=== PATIENT | female | born 1995 | race Caucasian/White ===

== ENCOUNTER 2018-06-02 10:18 | Emergency (ER) | payer OTHER, SELFPAY ==
[2018-06-02 10:25] VITALS: BP 131/73; PULSE 97; RESP 16; TEMP 36.7; O2SAT 99
--- NOTE | 2018-06-02 11:39 | DI.US.S_ITS ---
PROCEDURE: US OB >= 14 WEEKS FETUS INDICATIONS: RUPTURE OF MEMBRANES, 18 WEEKS OUTSIDE/PRIOR DATING DATA: Last menstrual period (LMP): 01/23/18. LMP-based estimated date of delivery (ALICIA): 10/30/18. First dating scan (date and location): This study, 06/02/18. Estimated date of delivery (ALICIA) from first dating scan: 11/06/18, plus or -10 days. TECHNIQUE: Real-time scanning was performed of the fetus, with image documentation and biometric measurements. Endovaginal scanning: Not needed for this study. COMPARISON: None. FINDINGS: General: A single living intrauterine gestation is present. Presentation: Vertex. Placenta: Placental position is posterior fundal, without previa. Amniotic fluid index: 11.5 cm, normal range is 5-24 cm. heart rate: 152 beats per minute. Maternal cervical canal: 3.1 cm long. Normal lower limit is 2.5 cm. biometrics: Biparietal diameter: 3.9 cm, 17 weeks 5 days Head circumference: 14.2 cm, 17 weeks 3 days Abdominal circumference: 11.7 cm, 17 weeks 3 days Femur length: 2.5 cm, 17 weeks 3 days Estimated gestational age from initial scan: not applicable. Composite gestational age from present scan: 17 weeks 4 days Estimated weight and percentile: 197 g, 5th percentile Measurement variability for biometric dating: +/- 7 days from 14 weeks to 15 weeks 6 days gestation, +/- 10 days from 16 weeks to 21 weeks 6 days gestation, +/- 2 weeks from 22 weeks to 27 weeks 6 days gestation, +/- 3 weeks for 28 weeks gestation or later. weight reference: 4500 g or EFW >90/95% is considered macrosomia or large for gestational age. EFW <10% is small for gestational age. EFW 5% or less is considered intra-uterine growth restriction. Anatomic survey: Neuro: Ventricles are non-dilated at less than 10 mm. Cisterna magna is normal at 3-11 mm. Cerebellum is normal in size and morphology. Nuchal skin fold: Normal at less than 6 mm between 14-21 weeks gestational age. Face: Nose and lips, facial profile are normal. Spine: No evidence for spina bifida. Heart: 4-chambered heart is present, with normal ventricular outflow tracts. Diaphragm: Diaphragm is intact. Stomach: Left-sided stomach is present. Kidneys: No hydronephrosis. Normal is less than 5 mm in 2nd trimester, less than 7 mm in 3rd trimester. Cord: 3-vessel cord has orthotopic insertion. Bladder: Normal in size. Extremities: All 4 extremities identified. IMPRESSION: Appropriate interval growth from LMP. Delivery date is projected in the center on 11/06/18. Current amniotic fluid volume is normal. Current weight is at the lower 5th percentile. Dictated by: Tian Grossman M.D. on 06/02/2018 at 12:36 Approved by: Tian Grossman M.D. on 06/02/2018 at 12:39
[2018-06-02 11:54] LABS: Add Manual Diff / Slide Review NO; Basophils Percent Auto 0.5 % (0-2); Eosinophils Percent Auto 1.4 % (2-4); Hematocrit 32.8 % (36-46); Lymphocytes Percent Auto 17.7 % (25-40); Mean Corpuscular HGB Conc 33.5 % (30-36); Mean Corpuscular Hemoglobin 26.4 PG (26-34); Mean Corpuscular Volume 78.9 fL (80-100); Monocytes Percent Auto 5.3 % (3-14); Neutrophils Absolute Auto 8600 /uL (3000-5900); Neutrophils Percent Auto 75.1 % (50-75); Platelet Count 251 X10^3/uL (150-400); Red Blood Cell Count 4.16 X10^6/uL (4.0-5.2); Red Cell Distribution Width 15.2 % (11.6-14.8); White Blood Cell Count 11.4 X10^3/uL (4.5-11.0)
[2018-06-02 12:06] LABS: Alanine Aminotransferase 25 IU/L (9-52); Albumin 3.8 g/dL (3.5-5.0); Albumin Globulin Ratio 1.3 (1.0-2.8); Alkaline Phosphatase 44 U/L (38-126); Aspartate Aminotransferase 21 IU/L (14-36); Blood Urea Nitrogen 5 mg/dL (7-17); Calcium 8.6 mg/dL (8.4-10.2); Carbon Dioxide 21 mmol/L (22-32); Chloride 107 mmol/L (98-107); Estimated Glomerular Filt Rate > 60.0 mL/min (>60); Glucose 88 mg/dL (70-100); HEMOLYSIS < 15 (0-50); Potassium 3.7 mmol/L (3.4-5.1); Sodium 140 mmol/L (137-145); Total Protein 6.8 g/dL (6.3-8.2)
[2018-06-02 12:07] LABS: Bilirubin Total < 0.1 mg/dL (0.2-1.3)
[2018-06-02] MEDS: SODIUM CHLORIDE 0.9% 1,000 ML 150 ML IV (12:10)
[2018-06-02 12:23] LABS: HCG Quantitative /Beta subunit 12876 mIU/mL
--- NOTE | 2018-06-02 13:05 | ED_ITS ---
HPI - General Chief complaint: OB/Uterine Contractions Stated complaint: LEONARDO BULL, 18 WEEKS Time Seen by Provider: 06/02/18 11:12 Source: patient and old records reviewed Limitations: no limitations History of Present Illness HPI Narrative: Patient is a 22-year-old female who is AG 4 P 0 83 presenting with back pain. She was actually seen and evaluated at 2 hospitals earlier this week 1 was [place] yesterday where she fell and had rupture of membranes. According to records she was seen at the [facility] and labor and delivery clinic. At that particular time she had a speculum exam which was negative for pooling as well as nitrazine. She was being sent home and she did developed more leakage the nitrazine test at that time was positive. She was instructed to call back if she was having contractions or bleeding. She then decided to come visit her mother at which point she was having cramping and she went to [facility] last night. She had an ultrasound last evening which showed normal amniotic fluid as well as activity. She was discharged home with watchful waiting. Today she started having back pain she has had no further leakage of fluid or blood. Patient : Yes Related Data Home Medications Medication Instructions Recorded Confirmed PNV,calcium 59-tlvx-xqgsd acid 1 tab PO DAILY 06/02/18 06/02/18 [ Plus (calcium carb)] cholecalciferol (vitamin D3) 1,000 units PO DAILY 06/02/18 06/02/18 ondansetron 4 mg PO PRN PRN 06/02/18 06/02/18 Allergies Allergy/AdvReac Type Severity Reaction Status Date / Time No Known Drug Allergies Allergy Verified 06/02/18 10:25 Review of Systems Review of Systems All systems reviewed & are unremarkable except as noted in HPI and below Constitutional Denies chills, Denies fever(s), Denies lethargy and Denies weakness Cardiovascular Denies chest pain, Denies syncope and Denies dyspnea Respiratory Denies cough and Denies dyspnea Gastrointestinal Gastrointestinal: Denies abdominal pain, Denies diarrhea and Denies nausea Genitourinary Reports as per HPI Musculoskeletal Reports back pain Integumentary/Breasts Denies pruritus, Denies erythema, Denies rash and Denies wounds Neurologic Denies syncope and Denies weakness PMFSH - Past Medical History 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 HEENT: Head atraumatic,EOMI, pupils reactive, face symmetric CARDIOVASCULAR: Regular rate and rhythm without murmurs, rubs or gallops. RESPIRATORY: Breath sounds equal bilaterally, no wheezes rales or rhonchi. ABDOMEN: Soft, nontender. Normoactive bowel sounds all 4 quadrants. No guarding or rebound. : No CVA tenderness PELVIC: External genitalia is normal, sterile speculum exam no pooling some clear discharge, EXTREMITIES: Normal range of motion, no clubbing or edema. Neurovascularly intact NEUROLOGICAL: Alert and oriented x4.Normal gait and speech. Cranial nerves II through XII grossly intact. SKIN: Warm, dry, no laceration, no petechiae, no rashes or lesions. Course Orders Ordered: Discontinued Medications Sodium Chloride (Normal Saline 0.9%) 1,000 mls @ 150 mls/hr IV CONT DARLIN Last Infusion: 06/02/18 14:07 Dose: 0 mls/hr Admin: 06/02/18 12:10 Dose: 150 mls/hr Vital Signs - 8 hr 06/02/18 10:25 Temperature 98.0 F Pulse Rate 97 H Respiratory Rate 16 Blood Pressure 131/73 Pulse Oximetry 99 MDM - OB/Uterine Contractions Lab Data Attestation: I reviewed the patient's lab results. Result diagrams: 06/02/18 11:44 06/02/18 11:44 Lab Results 06/02/18 06/02/18 06/02/18 Range/Units 11:44 11:44 11:44 WBC 11.4 H (4.5-11.0) X10^3/uL RBC 4.16 (4.0-5.2) X10^6/uL Hgb 11.0 L (12.0-16.0) g/dL Hct 32.8 L (36-46) % MCV 78.9 L (80-100) fL MCH 26.4 (26-34) PG MCHC 33.5 (30-36) % RDW 15.2 H (11.6-14.8) % Plt Count 251 (150-400) X10^3/uL Neut % (Auto) 75.1 H (50-75) % Lymph % (Auto) 17.7 L (25-40) % [place] % (Auto) 5.3 (3-14) % Eos % (Auto) 1.4 L (2-4) % Baso % (Auto) 0.5 (0-2) % Neut # (Auto) 8600 H (8145-4833) /uL Sodium 140 (137-145) mmol/L Potassium 3.7 (3.4-5.1) mmol/L Chloride 107 (98-107) mmol/L Carbon Dioxide 21 L (22-32) mmol/L BUN 5 L (7-17) mg/dL Creatinine 0.50 L (0.52-1.04) mg/dL Estimated GFR > 60.0 (>60) mL/min BUN/Creatinine Ratio 10.0 (6-22) Glucose 88 (70-100) mg/dL Calcium 8.6 (8.4-10.2) mg/dL Total Bilirubin < 0.1 L (0.2-1.3) mg/dL AST 21 (14-36) IU/L ALT 25 (9-52) IU/L Alkaline Phosphatase 44 (38-126) U/L Total Protein 6.8 (6.3-8.2) g/dL Albumin 3.8 (3.5-5.0) g/dL Globulin 3.0 (1.7-4.1) g/dL Albumin/Globulin Ratio 1.3 (1.0-2.8) HCG, Quant 19901 mIU/mL Blood Type B Positive Imaging Data OB US: Radiologist's impression: Signed Patient: [facility]#: [id number] : 1995Acct:[id number] Age/Sex: 22 / FDate of Service: 06/02/18 Loc: ED Accession Number: [id number] Procedure: US OB >= 14 weeks Fetus Ordering Provider: Botnick,Koki D.O. PROCEDURE: US OB >= 14 WEEKS FETUS INDICATIONS: RUPTURE OF MEMBRANES, 18 WEEKS OUTSIDE/PRIOR DATING DATA: Last menstrual period (LMP): 01/23/18. LMP-based estimated date of delivery (ALICIA): 10/30/18. First dating scan (date and location): This study, 06/02/18. Estimated date of delivery (ALICIA) from first dating scan: 11/06/18, plus or -10 days. TECHNIQUE: Real-time scanning was performed of the fetus, with image documentation and biometric measurements. Endovaginal scanning: Not needed for this study. COMPARISON: None. FINDINGS: General: A single living intrauterine gestation is present. Presentation: Vertex. Placenta: Placental position is posterior fundal, without previa. Amniotic fluid index: 11.5 cm, normal range is 5-24 cm. heart rate: 152 beats per minute. Maternal cervical canal: 3.1 cm long. Normal lower limit is 2.5 cm. biometrics: Biparietal diameter: 3.9 cm, 17 weeks 5 days Head circumference: 14.2 cm, 17 weeks 3 days Abdominal circumference: 11.7 cm, 17 weeks 3 days Femur length: 2.5 cm, 17 weeks 3 days Estimated gestational age from initial scan: not applicable. Composite gestational age from present scan: 17 weeks 4 days Estimated weight and percentile: 197 g, 5th percentile Measurement variability for biometric dating: +/- 7 days from 14 weeks to 15 weeks 6 days gestation, +/- 10 days from 16 weeks to 21 weeks 6 days gestation, +/- 2 weeks from 22 weeks to 27 weeks 6 days gestation, +/- 3 weeks for 28 weeks gestation or later. weight reference: 4500 g or EFW >90/95% is considered macrosomia or large for gestational age. EFW <10% is small for gestational age. EFW 5% or less is considered intra-uterine growth restriction. Anatomic survey: Neuro: Ventricles are non-dilated at less than 10 mm. Cisterna magna is normal at 3-11 mm. Cerebellum is normal in size and morphology. Nuchal skin fold: Normal at less than 6 mm between 14-21 weeks gestational age. Face: Nose and lips, facial profile are normal. Spine: No evidence for spina bifida. Heart: 4-chambered heart is present, with normal ventricular outflow tracts. Diaphragm: Diaphragm is intact. Stomach: Left-sided stomach is present. Kidneys: No hydronephrosis. Normal is less than 5 mm in 2nd trimester, less than 7 mm in 3rd trimester. Cord: 3-vessel cord has orthotopic insertion. Bladder: Normal in size. Extremities: All 4 extremities identified. IMPRESSION: Appropriate interval growth from LMP. Delivery date is projected in the center on 11/06/18. Current amniotic fluid volume is normal. Current weight is at the lower 5th percentile. Dictated by: Tian Grossman M.D. on 06/02/2018 at 12:36 Approved by: Tian Grossman M.D. on 06/02/2018 at 12:39 MDM Narrative Medical decision making narrative: 1:30 p.m. I spoke with Dr. Baker in regards to probable spontaneous rupture of membranes. He recommends that patient stay in 1 place and docked going to multiple hospitals. At this time there are no signs of infection no active discharge of baby, may be discharged home with monitoring. I discussed warning signs with patient including infection and bleeding and when to return to the ER. I also strongly recommended that she stay in 1 place , she may need a D&C. She understands she appears nontoxic all questions have been addressed. She will be staying in [place] with her mother. Discharge Plan Departure Patient Disposition: Home Clinical Impression: Threatened Discharge Date/Time: 06/02/18 14:13 Interventions: ED Discharge Assessment Last Done: 06/02/18 14:12 Instructions: Threatened Activity Restrictions/Additional Instructions: *You have been diagnosed with threatened *What to do: It is possible that your membranes have 3 sealed. However this is a very low possibility. His it is also possible that you may developed infection and have a miscarriage. At this time watchful waiting. It is recommended that you go to the same hospital each time in order to have continuity of care until this issue has resolved. *Continue to take medications as directed *Follow up with your primary care provider in 2-3 days *Return to ER if you should have fever, leakage of fluid, vaginal bleeding, increased pain or any new, worsening or concerning symptoms Prescriptions: No Action ondansetron 4 mg tablet,disintegrating 4 mg PO PRN PRN (Reason: Nausea) RF: 0 cholecalciferol (vitamin D3) 1,000 unit tablet 1,000 units PO DAILY RF: 0 PNV,calcium 21-oemx-gijdv acid [ Plus (calcium carb)] 27 mg iron- 1 mg tablet 1 tab PO DAILY RF: 0
== END 2018-06-02 14:13 | disposition home or self-care (01) ==
PROVIDERS: Emergency Provider Emergency Medicine
DX: O20.0 Threatened abortion (principal); Z3A.18 18 weeks gestation of pregnancy
CPT/HCPCS: 36591; 76811; 80053; 84702; 85025; 86900; 86901; 96360; 96361; 99283; 99284

== ENCOUNTER 2018-06-03 22:02 | Emergency (ER) | payer OTHER, SELFPAY ==
[2018-06-03 22:13] VITALS: BP 139/63; PULSE 109; RESP 15; TEMP 37.1; O2SAT 100; BMI 39.9
--- NOTE | 2018-06-03 22:30 | ED.PREGNANCY ---
HPI - General Chief complaint: OB/Uterine Contractions Stated complaint: 18 WKS LEONARDO BULL HAS FEVER Time Seen by Provider: 06/03/18 22:16 Source: patient and old records reviewed Mode of arrival: ambulatory Limitations: no limitations History of Present Illness HPI Narrative: This is a 22-year-old female comes to the emergency department with concern for fever and premature rupture of membranes. Patient is 18 weeks and 4 days. She states she was seen at 3 different locations including here yesterday, she was diagnosed with rupture of membranes, with positive nitrazine at two prior facilities, she had ultrasound yesterday with normal fluid level. She was told because she is so early there was not much to do at this point patient was told to return if she had fevers or chills. She states she had a 101.3 F earlier today and chills. She did have some nausea and vomiting around 3:00 a.m. this afternoon she felt a little short of breath earlier in the day, no chest pain. She has not been having any diarrhea or constipation. She has not had any urinary symptoms. She has continued to have a small amount of fluid leaking. She has also had a small amount of bleeding she states her underwear has been little bit of a brownish color and she states there is an odor. She does not know if that was from blood or infection. Initially she has had 3 prior pregnancies which all ended in miscarriage. She has never had a to term. She has continued to have sensation of contractions. Related Data Home Medications Medication Instructions Recorded Confirmed PNV,calcium 75-cyrm-nviss acid 1 tab PO DAILY 06/02/18 06/03/18 [ Plus (calcium carb)] cholecalciferol (vitamin D3) 1,000 units PO DAILY 06/02/18 06/03/18 ondansetron 4 mg PO PRN PRN 06/02/18 06/03/18 Previous Rx's Medication Instructions Recorded erythromycin 250 mg PO Q6H #40 tab 06/03/18 Allergies Allergy/AdvReac Type Severity Reaction Status Date / Time No Known Drug Allergies Allergy Verified 06/03/18 22:13 Review of Systems Review of Systems All systems reviewed & are unremarkable except as noted in HPI and below Constitutional Reports chills and Reports fever(s) Cardiovascular Reports chest pain and Denies dyspnea Respiratory Denies dyspnea Gastrointestinal Gastrointestinal: Reports abdominal pain (cramping), Denies change in bowel habits, Denies constipation, Denies diarrhea, Reports nausea and Reports vomiting Genitourinary Reports as per HPI, Reports abnormal vaginal bleeding, Denies urinary frequency, Denies dysuria, Reports pelvic pain, Denies urinary incontinence, Reports vaginal discharge, Reports vaginal odor and Reports other () PMFSH - Past Medical History Psychiatric history: Reports no psych history Family history: Reports no significant family history Exam Narrative Exam Narrative: GEN: Obese, well-appearing female, alert and oriented x 3, patient appears to be in mild distress. Patient does appear anxious. HEENT: Atraumatic, pupils are equal round reactive to light, extraocular movements are intact HEART: Regular rate and rhythm without murmur, clicks, rubs. LUNGS:Lungs clear to auscultation, no wheezes, rales, crackles, chest moves symmetrically ABD:bowel sounds normal, soft, non-tender, no guarding, rebound, rigidity, no masses noted, no hepatosplenomegaly :No CVA tenderness Female: external vaginal exam is normal, no vaginal bleeding, white thick discharge, normal speculum exam, no adnexal tenderness/mass. Mild tenderness with palpation of uterus. Bimanual exam deferred second to recent ROM. wet mount obtained. MSCL: Non-tender, no muscle atrophy, full range of motion, normal gait NEURO:CN 2-12 intact, sensation normal Initial Vital Signs Initial Vital Signs: Vital Signs Temperature 98.7 F 06/03/18 22:13 Pulse Rate 109 H 06/03/18 22:13 Respiratory Rate 15 06/03/18 22:13 Blood Pressure 139/63 06/03/18 22:13 Pulse Oximetry 100 06/03/18 22:13 Course Orders Ordered: ED Orders 06/03/18 22:35 C-Reactive Protein Quant Stat Complete Blood Count AUTO DIFF Stat Comprehensive Metabolic Panel Stat 06/03/18 23:00 Wet Prep Tric BV Mildred Stat Discontinued Medications Erythromycin (Cheko-Tab 500mg) 250 mg PO NOW ONE Stop: 06/03/18 23:48 Last Admin: 06/04/18 00:08 Dose: Sodium Chloride (Normal Saline 0.9%) 1,000 mls @ 1,000 mls/hr IV BOLUS ONE Stop: 06/03/18 23:25 Last Infusion: 06/04/18 00:08 Dose: 0 mls/hr Admin: 06/03/18 22:50 Dose: 1,000 mls/hr Vital Signs - 8 hr 06/03/18 22:13 06/03/18 23:54 Temperature 98.7 F 98.9 F Pulse Rate 109 H 98 H Respiratory Rate 15 Blood Pressure 139/63 Blood Pressure [Right Arm] 125/57 L Pulse Oximetry 100 100 MDM - OB/Uterine Contractions Lab Data Result diagrams: 06/03/18 22:35 06/03/18 22:35 Lab Results 06/03/18 06/03/18 06/03/18 Range/Units 22:35 22:35 22:35 WBC 12.3 H (4.5-11.0) X10^3/uL RBC 4.01 (4.0-5.2) X10^6/uL Hgb 10.8 L (12.0-16.0) g/dL Hct 31.5 L (36-46) % MCV 78.6 L (80-100) fL MCH 27.1 (26-34) PG MCHC 34.4 (30-36) % RDW 15.0 H (11.6-14.8) % Plt Count 257 (150-400) X10^3/uL Neut % (Auto) 75.0 (50-75) % Lymph % (Auto) 17.8 L (25-40) % [place] % (Auto) 5.3 (3-14) % Eos % (Auto) 1.7 L (2-4) % Baso % (Auto) 0.2 (0-2) % Neut # (Auto) 9200 H (1570-2644) /uL Sodium 140 (137-145) mmol/L Potassium 3.7 (3.4-5.1) mmol/L Chloride 108 H (98-107) mmol/L Carbon Dioxide 20 L (22-32) mmol/L BUN 4 L (7-17) mg/dL Creatinine 0.60 (0.52-1.04) mg/dL Estimated GFR > 60.0 (>60) mL/min BUN/Creatinine Ratio 6.7 (6-22) Glucose 94 (70-100) mg/dL Calcium 9.2 (8.4-10.2) mg/dL Total Bilirubin 0.1 L (0.2-1.3) mg/dL AST 21 (14-36) IU/L ALT 26 (9-52) IU/L Alkaline Phosphatase 44 (38-126) U/L C-Reactive Protein 1.2 H (<1.0) mg/dL Total Protein 6.9 (6.3-8.2) g/dL Albumin 3.9 (3.5-5.0) g/dL Globulin 3.0 (1.7-4.1) g/dL Albumin/Globulin Ratio 1.3 (1.0-2.8) Urine Dip Bedside Urine Glucose Negative Bedside Urine Bilirubin - Negative Bedside Urine Ketone - Negative Urine Specific [place] 1.010 Bedside Urine Occult Blood - Negative Bedside Urine pH 6.5 Bedside Urine Protein - Negative Bedside Urine Urobilinogen - Negative Bedside Urine Nitrite - Negative Bedside Urine Leukocytes - Negative Esterase MDM Narrative Medical decision making narrative: Patient diagnosed with premature rupture of membranes at two additional facilities. Seen here yesterday as well. US yesterady showed small for age, amniotic fluid index in normal range, HR 152 yesterday. FHT's today 155, no active fluid on exam or pooling. Labs show elevation of WBC of 12, CRP is 1.2, patient has few WBC's on wet mount. Fever at home, did not take any motrin/tylenol, no fever here. Spoke with Dr. Keith, plan for erythromycin for antibiotics and follow up with office, call wednesday for appointment. Patient and I reviewed signs/symptoms to watch for and reasons to return. Nursing states no erythromycin in pharmacy. Patient to start first dose in am. Discharge Plan Departure Patient Disposition: Home Clinical Impression: Premature rupture of membranes Discharge Date/Time: 06/04/18 00:08 Interventions: ED Discharge Assessment Last Done: 06/04/18 00:08 Instructions: DI for Premature Rupture of Membranes Activity Restrictions/Additional Instructions: Call Wednesday morning for an appointment with Competency Evaluated Nurse Aide. Take erythromycin four times daily. You may take tylenol as needed for pain. Return to ER for persistent fevers greater than 100.4F, rapidly worsening symptoms, increasing bleeding, large clots, foul odor/purulent drainage, pelvic pain or new or concerning symptoms. Prescriptions: New erythromycin 250 mg tablet 250 mg PO Q6H Qty: 40 RF: 0 No Action ondansetron 4 mg tablet,disintegrating 4 mg PO PRN PRN (Reason: Nausea) RF: 0 cholecalciferol (vitamin D3) 1,000 unit tablet 1,000 units PO DAILY RF: 0 PNV,calcium 59-qtpl-bljnc acid [ Plus (calcium carb)] 27 mg iron- 1 mg tablet 1 tab PO DAILY RF: 0 Referrals: Adithya Keith MD [Physician] -
[2018-06-03 22:47] LABS: Add Manual Diff / Slide Review NO; Basophils Percent Auto 0.2 % (0-2); Eosinophils Percent Auto 1.7 % (2-4); Hematocrit 31.5 % (36-46); Hemoglobin 10.8 g/dL (12.0-16.0); Lymphocytes Percent Auto 17.8 % (25-40); Mean Corpuscular HGB Conc 34.4 % (30-36); Mean Corpuscular Hemoglobin 27.1 PG (26-34); Mean Corpuscular Volume 78.6 fL (80-100); Monocytes Percent Auto 5.3 % (3-14); Neutrophils Absolute Auto 9200 /uL (3000-5900); Platelet Count 257 X10^3/uL (150-400); Red Blood Cell Count 4.01 X10^6/uL (4.0-5.2); White Blood Cell Count 12.3 X10^3/uL (4.5-11.0)
[2018-06-03] MEDS: SODIUM CHLORIDE 0.9% 1,000 ML 1000 ML IV (22:50)
[2018-06-03 22:54] LABS: Alanine Aminotransferase 26 IU/L (9-52); Albumin 3.9 g/dL (3.5-5.0); Albumin Globulin Ratio 1.3 (1.0-2.8); Alkaline Phosphatase 44 U/L (38-126); Aspartate Aminotransferase 21 IU/L (14-36); BUN Creatinine Ratio 6.7 (6-22); Bilirubin Total 0.1 mg/dL (0.2-1.3); Blood Urea Nitrogen 4 mg/dL (7-17); Calcium 9.2 mg/dL (8.4-10.2); Carbon Dioxide 20 mmol/L (22-32); Chloride 108 mmol/L (98-107); Estimated Glomerular Filt Rate > 60.0 mL/min (>60); Glucose 94 mg/dL (70-100); HEMOLYSIS < 15 (0-50); Potassium 3.7 mmol/L (3.4-5.1); Sodium 140 mmol/L (137-145); Total Protein 6.9 g/dL (6.3-8.2)
[2018-06-03 23:22] LABS: C-Reactive Protein Quant 1.2 mg/dL (<1.0)
[2018-06-03 23:54] VITALS: BP 125/57; PULSE 98; TEMP 37.2; O2SAT 100
== END 2018-06-04 00:08 | disposition home or self-care (01) ==
PROVIDERS: Emergency Provider Emergency Medicine
DX: O42.90 Premature rupture of membranes, unspecified as to length of time between rupture and onset of labor, unspecified weeks of gestation (principal); Z3A.18 18 weeks gestation of pregnancy
CPT/HCPCS: 36591; 80053; 81003; 85025; 86140; 87210; 96360; 99283; 99284